=== PATIENT | male | born 1940 | race Two or more races ===

== ENCOUNTER 2017-02-13 11:52 | Inpatient (IN) | payer MEDICAID, MEDICARE ==
[~2017-02-13] VITALS: Ht 167.6 cm; Wt 89.0 kg
[2017-02-13 12:21] LABS: RED CELL DISTRIBUTION WIDTH 13.7 % (11.5-14.5)
[2017-02-13 12:37] LABS: PLATELET COUNT 109 x10^3mcL (130-400)
[2017-02-13] MEDS ORDERED: CARVEDILOL12.5 M1 PO (12:41)
[2017-02-13] MEDS ORDERED: TRADJENTA5 M1 PO (12:42)
[2017-02-13] MEDS ORDERED: ALLOPURINOL100 MG PO (12:42)
[2017-02-13] MEDS ORDERED: FUROSEMIDE40 MG PO (12:42)
[2017-02-13] MEDS ORDERED: ANASTROZOLE1 M1 PO (12:42)
[2017-02-13] MEDS ORDERED: NITROSTAT0.4 MG (12:42)
[2017-02-13] MEDS ORDERED: GLIMEPIRIDE2 M1 PO (12:43)
[2017-02-13] MEDS ORDERED: NOR5 PO (12:43)
[2017-02-13] MEDS ORDERED: D-20001 TAB PO (12:43)
[2017-02-13] MEDS ORDERED: METOPROLOL SUCC50 M2 PO (12:43)
[2017-02-13] MEDS ORDERED: SIMVASTATIN40 M1 PO (12:44)
[2017-02-13] MEDS ORDERED: ALTACE5 MG PO (12:44)
[2017-02-13] MEDS ORDERED: ASPIR 8181 MG PO (12:44)
[2017-02-13] MEDS ORDERED: [UNRECOGNIZED DRUG - OTHER] PO (12:45)
[2017-02-13 12:48] LABS: CK-MB 0.9 ng/mL (0-3.6)
[2017-02-13 13:23] LABS: CALCIUM 8.9 mg/dL (8.5-10.1); CHLORIDE SERUM 99 mmol/L (98-107); CREATININE SERUM 2.5 mg/dL (0.7-1.3); GLUCOSE SERUM 165 mg/dL (74-106); POTASSIUM SERUM 5.3 mmol/L (3.5-5.1); SODIUM SERUM 131 mmol/L (136-145)
[2017-02-13 13:56] LABS: ALBUMIN 3.3 g/dL (3.4-5.0); ALKALINE PHOSPHATASE 97 U/L (46-116); ALT/SGPT 64 U/L (16-63); AST/SGOT 96 U/L (15-37); BILIRUBIN TOTAL 1.27 mg/dL (0.20-1.00); TOTAL PROTEIN, SERUM 7.5 g/dL (6.4-8.2)
[2017-02-13 14:12] VITALS: BP 124/58
[2017-02-13 14:18] LABS: BAND NEUTROPHIL 18 % (0-10); METAMYELOCTE 15 % (0-2); MONOCYTE 6 % (0-7); MYELOCYTE 1 % (0-2); SEGMENTED NEUTROPHILS 56 % (37-75)
[2017-02-13 14:20] LABS: PLATELET MORPHOLOGY FEW LARGE PLATELETS; rbc morphology (normal/abnorm) NORMAL (NORMAL)
[2017-02-13 14:56] LABS: T3 TOTAL 0.35 ng/mL
[2017-02-13 14:58] LABS: CHOLESTEROL/HDL RATIO 2.8; MAGNESIUM 1.6 mg/dL (1.8-2.4); PHOSPHOROUS 3.5 mg/dL (2.5-4.9)
[2017-02-13 15:05] LABS: FREE T4 0.96 ng/dL (0.76-1.46); T4(THYROXINE) 5.7 ug/dL (4.7-13.3)
[2017-02-13 15:50] LABS: UA SPECIFIC GRAVITY 1.025 (1.005-1.035); microscopic required? YES; urine erythrocyte 3+ (NEGATIVE)
[2017-02-13 17:09] VITALS: BP 124/58
[2017-02-13 17:41] VITALS: BP 126/62
[2017-02-13 20:58] LABS: CALCIUM 7.7 mg/dL (8.5-10.1); CARBON DIOXIDE 20.6 mmol/L (21-32); CHLORIDE SERUM 101 mmol/L (98-107); CREATININE SERUM 2.4 mg/dL (0.7-1.3); GLUCOSE SERUM 202 mg/dL (74-106); POTASSIUM SERUM 5.2 mmol/L (3.5-5.1); SODIUM SERUM 132 mmol/L (136-145)
[2017-02-13 21:02] VITALS: BP 145/68
[2017-02-14] VITALS: BP 105/56
[2017-02-14 05:21] VITALS: BP 127/74
[2017-02-14 06:12] LABS: RED CELL DISTRIBUTION WIDTH 14.2 % (11.5-14.5)
[2017-02-14 06:29] LABS: CHLORIDE SERUM 101 mmol/L (98-107); CREATININE SERUM 2.4 mg/dL (0.7-1.3); GLUCOSE SERUM 180 mg/dL (74-106); MAGNESIUM 1.7 mg/dL (1.8-2.4); PHOSPHOROUS 4.4 mg/dL (2.5-4.9); SODIUM SERUM 131 mmol/L (136-145)
[2017-02-14 07:06] LABS: PLATELET COUNT 70 x10^3mcL (130-400)
[2017-02-14 08:53] LABS: BAND NEUTROPHIL 20 % (0-10); BASOPHIL 0 % (0-2); METAMYELOCTE 9 % (0-2); MONOCYTE 5 % (0-7); MYELOCYTE 1 % (0-2); SEGMENTED NEUTROPHILS 59 % (37-75)
[2017-02-14 08:55] LABS: burr cell (echinocyte) 1+; rbc morphology (normal/abnorm) ABNORMAL (NORMAL)
[2017-02-14 10:20] VITALS: BP 127/61
[2017-02-14 13:30] VITALS: BP 146/71
[2017-02-14 16:24] LABS: RED CELL DISTRIBUTION WIDTH 14.3 % (11.5-14.5)
[2017-02-14 16:30] LABS: CALCIUM 8.2 mg/dL (8.5-10.1); CARBON DIOXIDE 22.1 mmol/L (21-32); CHLORIDE SERUM 96 mmol/L (98-107); CREATININE SERUM 2.8 mg/dL (0.7-1.3); GLUCOSE SERUM 232 mg/dL (74-106); POTASSIUM SERUM 4.7 mmol/L (3.5-5.1); SODIUM SERUM 130 mmol/L (136-145)
[2017-02-14 16:41] LABS: PLATELET COUNT 68 x10^3mcL (130-400)
[2017-02-14 16:51] VITALS: BP 135/79
[2017-02-14 19:42] LABS: BAND NEUTROPHIL 9 % (0-10); BASOPHIL 0 % (0-2); MONOCYTE 4 % (0-7); SEGMENTED NEUTROPHILS 76 % (37-75)
[2017-02-14 19:43] LABS: rbc morphology (normal/abnorm) ABNORMAL (NORMAL); tear drop cell (dacryocyte) 1+
[2017-02-14 19:44] LABS: PLATELET MORPHOLOGY GIANT PLATELET SEEN
[2017-02-14 19:46] VITALS: BP 122/65
[2017-02-15 06:19] VITALS: BP 108/52
[2017-02-15 06:26] LABS: RED CELL DISTRIBUTION WIDTH 14.5 % (11.5-14.5)
[2017-02-15 06:40] LABS: ALKALINE PHOSPHATASE 86 U/L (46-116); ALT/SGPT 73 U/L (16-63); AST/SGOT 110 U/L (15-37); BILIRUBIN TOTAL 0.9 mg/dL (0.20-1.00); CALCIUM 8.2 mg/dL (8.5-10.1); CARBON DIOXIDE 23.1 mmol/L (21-32); CHLORIDE SERUM 95 mmol/L (98-107); CREATININE SERUM 3.4 mg/dL (0.7-1.3); GLUCOSE SERUM 170 mg/dL (74-106); SODIUM SERUM 128 mmol/L (136-145); TOTAL PROTEIN, SERUM 6.7 g/dL (6.4-8.2)
[2017-02-15 06:52] LABS: PLATELET COUNT 82 x10^3mcL (130-400)
[2017-02-15 06:54] LABS: ALBUMIN 2.7 g/dL (3.4-5.0)
[2017-02-15 07:21] LABS: MAGNESIUM 2.2 mg/dL (1.8-2.4); PHOSPHOROUS 6.1 mg/dL (2.5-4.9)
[2017-02-15 07:23] LABS: IRON 24 ug/dL (65-170); TOTAL IRON BINDING CAPACITY 222 ug/dL (250-450)
[2017-02-15 09:42] VITALS: BP 120/67
[2017-02-15 12:56] LABS: BAND NEUTROPHIL 13 % (0-10); MONOCYTE 7 % (0-7); SEGMENTED NEUTROPHILS 66 % (37-75); rbc morphology (normal/abnorm) ABNORMAL (NORMAL)
[2017-02-15 12:57] LABS: PLATELET MORPHOLOGY LARGE PLATELET SEEN
[2017-02-15 14:25] VITALS: BP 166/64
[2017-02-15 21:42] VITALS: BP 111/62
[2017-02-16 06:20] LABS: BASOPHIL % 0.1 % (0-2); RED CELL DISTRIBUTION WIDTH 14.4 % (11.5-14.5)
[2017-02-16 06:23] VITALS: BP 113/55
[2017-02-16 06:34] LABS: CALCIUM 8.6 mg/dL (8.5-10.1); CARBON DIOXIDE 22.8 mmol/L (21-32); CHLORIDE SERUM 94 mmol/L (98-107); CREATININE SERUM 3.7 mg/dL (0.7-1.3); MAGNESIUM 2.3 mg/dL (1.8-2.4); PHOSPHOROUS 6.7 mg/dL (2.5-4.9); POTASSIUM SERUM 4.1 mmol/L (3.5-5.1); SODIUM SERUM 130 mmol/L (136-145)
[2017-02-16 06:38] LABS: GLUCOSE SERUM 48 mg/dL (74-106)
[2017-02-16 07:21] LABS: PLATELET COUNT 80 x10^3mcL (130-400)
[2017-02-16 09:18] VITALS: BP 94/54
[2017-02-16 13:40] VITALS: BP 111/62
[2017-02-16 14:14] VITALS: BP 111/62
[2017-02-16 17:04] VITALS: BP 127/65
[2017-02-16 17:27] LABS: UA SPECIFIC GRAVITY 1.015 (1.005-1.035); microscopic required? YES; urine erythrocyte 3+ (NEGATIVE)
[2017-02-16 19:52] VITALS: BP 121/63
[2017-02-17 06:01] VITALS: BP 125/62
[2017-02-17 06:26] LABS: RED CELL DISTRIBUTION WIDTH 14.4 % (11.5-14.5)
[2017-02-17 06:47] LABS: CALCIUM 8.4 mg/dL (8.5-10.1); CARBON DIOXIDE 25.2 mmol/L (21-32); CHLORIDE SERUM 89 mmol/L (98-107); CREATININE SERUM 3.8 mg/dL (0.7-1.3); GLUCOSE SERUM 65 mg/dL (74-106); PHOSPHOROUS 5.9 mg/dL (2.5-4.9); POTASSIUM SERUM 3.9 mmol/L (3.5-5.1)
[2017-02-17 06:52] LABS: SODIUM SERUM 121 mmol/L (136-145)
[2017-02-17 07:00] LABS: PLATELET COUNT 82 x10^3mcL (130-400)
[2017-02-17 09:40] LABS: BAND NEUTROPHIL 7 % (0-10); BASOPHIL 0 % (0-2); MONOCYTE 3 % (0-7); SEGMENTED NEUTROPHILS 82 % (37-75)
[2017-02-17 09:41] LABS: rbc morphology (normal/abnorm) ABNORMAL (NORMAL)
[2017-02-17 09:42] VITALS: BP 133/66
[2017-02-17 14:25] LABS: CALCIUM 8.8 mg/dL (8.5-10.1); CHLORIDE SERUM 89 mmol/L (98-107); CREATININE SERUM 3.6 mg/dL (0.7-1.3); GLUCOSE SERUM 110 mg/dL (74-106); POTASSIUM SERUM 3.9 mmol/L (3.5-5.1); SODIUM SERUM 125 mmol/L (136-145)
[2017-02-17 14:26] VITALS: BP 122/65
[2017-02-17 17:29] VITALS: BP 130/63
[2017-02-17 20:54] VITALS: BP 128/59
[2017-02-18 06:01] VITALS: BP 136/63
[2017-02-18 06:26] LABS: RED CELL DISTRIBUTION WIDTH 14.2 % (11.5-14.5)
[2017-02-18 06:33] LABS: PLATELET COUNT 114 x10^3mcL (130-400)
[2017-02-18 06:56] LABS: ALKALINE PHOSPHATASE 250 U/L (46-116); ALT/SGPT 81 U/L (16-63); AST/SGOT 108 U/L (15-37); BILIRUBIN TOTAL 1.1 mg/dL (0.20-1.00); CALCIUM 8.5 mg/dL (8.5-10.1); CARBON DIOXIDE 26.6 mmol/L (21-32); CHLORIDE SERUM 86 mmol/L (98-107); CREATININE SERUM 3.4 mg/dL (0.7-1.3); GLUCOSE SERUM 172 mg/dL (74-106); MAGNESIUM 2.7 mg/dL (1.8-2.4); PHOSPHOROUS 6.3 mg/dL (2.5-4.9); POTASSIUM SERUM 3.5 mmol/L (3.5-5.1); TOTAL PROTEIN, SERUM 6.5 g/dL (6.4-8.2)
[2017-02-18 07:24] LABS: ALBUMIN 2.3 g/dL (3.4-5.0)
[2017-02-18 07:26] LABS: SODIUM SERUM 125 mmol/L (136-145)
[2017-02-18 07:41] LABS: BAND NEUTROPHIL 1 % (0-10); MONOCYTE 8 % (0-7); SEGMENTED NEUTROPHILS 82 % (37-75); rbc morphology (normal/abnorm) NORMAL (NORMAL)
[2017-02-18 10:16] VITALS: BP 141/60
[2017-02-18 13:09] VITALS: BP 118/56
[2017-02-18 18:27] VITALS: BP 105/63
[2017-02-18 20:20] LABS: CALCIUM 8.2 mg/dL (8.5-10.1); CHLORIDE SERUM 89 mmol/L (98-107); CREATININE SERUM 3.2 mg/dL (0.7-1.3); GLUCOSE SERUM 196 mg/dL (74-106); POTASSIUM SERUM 3.3 mmol/L (3.5-5.1); SODIUM SERUM 126 mmol/L (136-145)
[2017-02-18 21:11] VITALS: BP 128/59
[2017-02-18 21:51] LABS: OSMOLALITY SERUM 299 mOsm/kg (278-298)
[2017-02-19 06:16] LABS: BASOPHIL % 0.1 % (0-2); PLATELET COUNT 171 x10^3mcL (130-400); RED CELL DISTRIBUTION WIDTH 14.1 % (11.5-14.5)
[2017-02-19 06:31] LABS: ALKALINE PHOSPHATASE 255 U/L (46-116); ALT/SGPT 82 U/L (16-63); AST/SGOT 95 U/L (15-37); BILIRUBIN TOTAL 1.04 mg/dL (0.20-1.00); CALCIUM 8.4 mg/dL (8.5-10.1); CARBON DIOXIDE 25.7 mmol/L (21-32); CHLORIDE SERUM 93 mmol/L (98-107); CREATININE SERUM 2.9 mg/dL (0.7-1.3); GLUCOSE SERUM 131 mg/dL (74-106); MAGNESIUM 2.8 mg/dL (1.8-2.4); PHOSPHOROUS 5.5 mg/dL (2.5-4.9); POTASSIUM SERUM 3.2 mmol/L (3.5-5.1); SODIUM SERUM 130 mmol/L (136-145); TOTAL PROTEIN, SERUM 6.7 g/dL (6.4-8.2)
[2017-02-19 06:54] LABS: ALBUMIN 2.2 g/dL (3.4-5.0)
[2017-02-19 07:00] VITALS: BP 136/65
[2017-02-19 10:12] VITALS: BP 145/68
[2017-02-19 14:58] VITALS: BP 142/69
[2017-02-19 17:01] VITALS: BP 143/54
[2017-02-19 17:39] VITALS: BP 143/54
[2017-02-19 21:56] VITALS: BP 146/62
[2017-02-20 05:57] VITALS: BP 131/61
[2017-02-20 06:28] LABS: PLATELET COUNT 229 x10^3mcL (130-400); RED CELL DISTRIBUTION WIDTH 14.3 % (11.5-14.5)
[2017-02-20 07:10] LABS: CARBON DIOXIDE 26.6 mmol/L (21-32); CHLORIDE SERUM 93 mmol/L (98-107); POTASSIUM SERUM 3.2 mmol/L (3.5-5.1); SODIUM SERUM 129 mmol/L (136-145)
[2017-02-20 07:11] LABS: GLUCOSE SERUM 151 mg/dL (74-106)
[2017-02-20 07:12] LABS: CALCIUM 8.5 mg/dL (8.5-10.1); CREATININE SERUM 2.4 mg/dL (0.7-1.3); PHOSPHOROUS 4.2 mg/dL (2.5-4.9)
[2017-02-20 07:13] LABS: MAGNESIUM 2.5 mg/dL (1.8-2.4)
[2017-02-20 10:19] VITALS: BP 155/74
[2017-02-20 10:21] LABS: BAND NEUTROPHIL 14 % (0-10); BASOPHIL 0 % (0-2); MONOCYTE 9 % (0-7); PLATELET MORPHOLOGY LARGE PLATELET SEEN; SEGMENTED NEUTROPHILS 65 % (37-75); rbc morphology (normal/abnorm) ABNORMAL (NORMAL); tear drop cell (dacryocyte) 1+
[2017-02-20 13:39] VITALS: BP 157/66
[2017-02-20 15:56] LABS: microscopic required? YES; urine erythrocyte 3+ (NEGATIVE)
[2017-02-20 17:44] VITALS: BP 113/71
[2017-02-20 17:46] VITALS: BP 142/64
[2017-02-20 23:00] VITALS: BP 155/69
[2017-02-21 06:01] VITALS: BP 157/67
[2017-02-21 08:32] LABS: PLATELET COUNT 269 x10^3mcL (130-400)
[2017-02-21 08:36] LABS: RED CELL DISTRIBUTION WIDTH 14.7 % (11.5-14.5)
[2017-02-21 10:17] LABS: CALCIUM 8.2 mg/dL (8.5-10.1); CARBON DIOXIDE 25.5 mmol/L (21-32); CHLORIDE SERUM 100 mmol/L (98-107); GLUCOSE SERUM 146 mg/dL (74-106); PHOSPHOROUS 3.7 mg/dL (2.5-4.9); SODIUM SERUM 135 mmol/L (136-145)
[2017-02-21 10:33] LABS: POTASSIUM SERUM 2.7 mmol/L (3.5-5.1)
[2017-02-21 11:13] LABS: BAND NEUTROPHIL 11 % (0-10); BASOPHIL 0 % (0-2); MONOCYTE 5 % (0-7); SEGMENTED NEUTROPHILS 72 % (37-75); rbc morphology (normal/abnorm) ABNORMAL (NORMAL)
[2017-02-21 11:44] VITALS: BP 144/63
[2017-02-21 16:21] LABS: CALCIUM 8.7 mg/dL (8.5-10.1); CARBON DIOXIDE 29.7 mmol/L (21-32); CHLORIDE SERUM 96 mmol/L (98-107); CREATININE SERUM 2.1 mg/dL (0.7-1.3); GLUCOSE SERUM 194 mg/dL (74-106); POTASSIUM SERUM 3.5 mmol/L (3.5-5.1); SODIUM SERUM 130 mmol/L (136-145)
[2017-02-21 17:52] VITALS: BP 142/66
[2017-02-21 21:15] VITALS: BP 142/66
[2017-02-21 22:09] VITALS: BP 139/58
== END 2017-02-21 23:46 | disposition short-term general hospital (02) | DRG 720 ==
LOC: ED 11:52 → DU 13:11
PROVIDERS: Emergency Medicine; Internal Medicine; ADMIT Family Medicine
DX: A40.0 Sepsis due to streptococcus, group A (principal); N17.0 Acute kidney failure with tubular necrosis; E43 Unspecified severe protein-calorie malnutrition; R65.20 Severe sepsis without septic shock; E87.2 Acidosis; E11.51 Type 2 diabetes mellitus with diabetic peripheral angiopathy without gangrene; D69.59 Other secondary thrombocytopenia; E11.628 Type 2 diabetes mellitus with other skin complications; B95.0 Streptococcus, group A, as the cause of diseases classified elsewhere; E11.65 Type 2 diabetes mellitus with hyperglycemia; L03.032 Cellulitis of left toe; N39.0 Urinary tract infection, site not specified; E87.1 Hypo-osmolality and hyponatremia; E87.5 Hyperkalemia; R31.9 Hematuria, unspecified; E78.1 Pure hyperglyceridemia; E04.1 Nontoxic single thyroid nodule; I12.9 Hypertensive chronic kidney disease with stage 1 through stage 4 chronic kidney disease, or unspecified chronic kidney disease; N18.3 Chronic kidney disease, stage 3 (moderate); D64.9 Anemia, unspecified; M19.90 Unspecified osteoarthritis, unspecified site; E66.9 Obesity, unspecified; Z68.31 Body mass index [BMI] 31.0-31.9, adult; Z95.1 Presence of aortocoronary bypass graft; Z86.718 Personal history of other venous thrombosis and embolism; Z95.2 Presence of prosthetic heart valve; Z79.82 Long term (current) use of aspirin; Z79.84 Long term (current) use of oral hypoglycemic drugs
CPT/HCPCS: 36600; 82962; 83880; 84439; 86022; 94150; 97110-GP; 97116-GP; 97530-GP; B4164; C9113; J1644; J1940; J1956; J2270; J2540; J2765; J2930; J3370; J3480; J3490; J7030; J7042; J7050; J7613; J7620; J7644; Q0092; Q9966